=== PATIENT | male | born 1990 | race Asian ===

== ENCOUNTER 2020-10-10 05:04 | Emergency (ER) | payer OTHER ==
[~2020-10-10] VITALS: Ht 180.3 cm; Wt 99.8 kg
[2020-10-10 05:48] VITALS: BP 121/86; Ht 180.3 cm; Wt 99.8 kg
== END 2020-10-10 08:04 | disposition home or self-care (01) ==
LOC: ED 05:04
DX: S61.412A Laceration without foreign body of left hand, initial encounter (principal); W22.8XXA Striking against or struck by other objects, initial encounter; Y93.89 Activity, other specified; Y92.89 Other specified places as the place of occurrence of the external cause; Y99.8 Other external cause status
CPT/HCPCS: 90715; J2001

== ENCOUNTER 2020-10-12 06:12 | Emergency (ER) | payer OTHER ==
[~2020-10-12] VITALS: Ht 177.8 cm; Wt 104.0 kg
[2020-10-12 06:16] VITALS: BP 131/80
== END 2020-10-12 06:52 | disposition home or self-care (01) ==
LOC: ED 06:12
DX: S61.412D Laceration without foreign body of left hand, subsequent encounter (principal); X58.XXXD Exposure to other specified factors, subsequent encounter

== ENCOUNTER 2020-10-20 06:01 | Emergency (ER) | payer OTHER ==
[~2020-10-20] VITALS: Ht 177.8 cm; Wt 46.7 kg
[2020-10-20 06:09] VITALS: BP 118/71; Ht 177.8 cm; Wt 46.7 kg
== END 2020-10-20 06:36 | disposition home or self-care (01) ==
LOC: ED 06:01
DX: S61.211D Laceration without foreign body of left index finger without damage to nail, subsequent encounter (principal); X58.XXXD Exposure to other specified factors, subsequent encounter